=== PATIENT | female | born 1960 | race Caucasian/White ===

== ENCOUNTER 2016-09-22 11:27 | Emergency (ER) | payer OTHER ==
[2016-09-22 11:33] VITALS: BP 125/71; PULSE 90; TEMP 97.9; BMI 44.9
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
[2016-09-22] MEDS ORDERED: traMADol HCL 50 MG TABLET PO ONE (14:25)
[2016-09-22] MEDS ORDERED: traMADol HCL 50 MG TABLET ONE (14:27)
== END 2016-09-22 14:59 | disposition home or self-care (01) ==
LOC: JERFT 11:27
DX: S46.002A Unspecified injury of muscle(s) and tendon(s) of the rotator cuff of left shoulder, initial encounter (principal); S00.11XA Contusion of right eyelid and periocular area, initial encounter; S50.11XA Contusion of right forearm, initial encounter; Y04.2XXA Assault by strike against or bumped into by another person, initial encounter; Y93.89 Activity, other specified; Y92.89 Other specified places as the place of occurrence of the external cause; Y99.8 Other external cause status; Y07.499 Other family member, perpetrator of maltreatment and neglect; J44.9 Chronic obstructive pulmonary disease, unspecified; I10 Essential (primary) hypertension; Z86.718 Personal history of other venous thrombosis and embolism; Z79.01 Long term (current) use of anticoagulants
CPT/HCPCS: 70450-TC; 73030-TC-LT; 99281-25